=== PATIENT | female | born 1995 | race Caucasian/White ===

== ENCOUNTER 2023-12-08 19:13 | Emergency (ER) | payer MEDICAID, OTHER ==
[~2023-12-08] VITALS: Ht 152.4 cm; Wt 66.2 kg
[~2023-12-08 19:13] MED LIST: ARIP10TA9 PO; DEXM10CP PO; ESOM40CA PO; FERR325T59 PO; HYDR-3468 PO; Hydrocodone/Acetaminophen PO; IBUP-1131 PO; NITR100C PO; PHEN95TA12 PO; PNV1TABL34 PO; PREN-2 PO; PREN1TAB59 PO; RANI150C PO; TRAZ-168 PO; [UNRECOGNIZED DRUG - CODE] PO
--- NOTE | 2023-12-08 19:15 | NUR ---
TRIAGE PT ARRIVED TO THE ER C/O ABD DIFFUSE ABD PAIN FOR THR LAST 3 WEEKS. PT STATED SHE WENT TO [facility] 4 DAYS AGO AND WAS DIAGNOSED WITH A UTI AND WAS PRESCRIBED ABX. PT STATED SHE WAS UNABLE TO GET HER PRESCRIPTION FILLED SO SHE WENT TO [facility] THE NEXT DAY AND WAS DIAGNOSED WITH A UTI AND WAS SENT HOME WITH A PRESCRIPTION FOR KEFLEX. PT STATED SHE LIVES IN [facility] AND SHE WAS NOT ABLE TO GET A RIDE TO A LOCAL PHARMACY SO SHE GOT A RIDE TO [facility] BY HER MOTHER. PT STATED SHE WAS ALSO DIAGNOSED WITH TRICH
[2023-12-08 19:38] VITALS: BP 89/57; PULSE 87; RESP 16; TEMP 97.8; O2SAT 98
[2023-12-08 20:27] VITALS: BP 102/62; PULSE 80; RESP 16; TEMP 97.8; O2SAT 98
== END 2023-12-08 20:30 | disposition home or self-care (01) ==
LOC: ER 19:13
DX: R19.7 Diarrhea, unspecified (principal); R20.2 Paresthesia of skin; Z90.49 Acquired absence of other specified parts of digestive tract; Z88.0 Allergy status to penicillin; Z88.1 Allergy status to other antibiotic agents
CPT/HCPCS: 99281